=== PATIENT | female | born 1945 | race Caucasian/White ===

== ENCOUNTER → 2016-08-07 | Outpatient (CLI) | payer OTHER, MEDICARE ==
[~2016-08-07] MED LIST: ASPCH81X PO; ATOR-24 PO; BUSP-8 PO; CALC-440 PO; CINN1CAP2 PO; DSY/150 PO; ESCI1TAB10 PO; MISCCAP80 PO; MTR800 PO; OXYC-106 PO; PANT40TA PO; TEMA15CA4 PO
--- NOTE | 2016-08-07 18:30 | DIAGNOSTIC IMAGING REPORT ---
CHEST 2 VIEWS ROUTINE HISTORY: Preop. COMPARISON: None. FINDINGS: Small linear density within the periphery of the left midlung zone likely represents scarring. Otherwise, the lungs are clear. No pleural effusions. No pneumothorax. The heart is normal in size. Mild degenerative changes within the thoracic spine. Prior cholecystectomy. IMPRESSION: No acute process. Electronically signed by: Manuel Ye M.D. 08/07/2016 6:28 PM Dictated Date/Time: 08/07/2016 6:26 PM
[2016-08-07 18:39] LABS: BASO % 0.6 %; BASO ABS # 0.05 K/uL (0-0.2); COMPLETE YES; EOS % 2.2 %; HEMATOCRIT 43.1 % (37-47); IG% 0.2 %; LYMPH % 33.3 %; LYMPH ABS # 2.78 K/uL (1.2-3.4); MEAN CELL VOLUME 90.2 fL (80-100); MEAN CORPUSCULAR HEMOGLOBIN 29.9 pg (25-34); MEAN CORPUSCULAR HGB CONC 33.2 g/dl (32-36); MEAN PLATELET VOLUME 10.4 fL (7.4-10.4); MONO % 6.4 %; NEUT % 57.3 %; PLATELET COUNT 335 K/uL (130-400); RED BLOOD COUNT 4.78 M/uL (4.2-5.4); WHITE BLOOD COUNT 8.34 K/uL (4.8-10.8)
[2016-08-07 18:46] LABS: URINE APPEARANCE CLEAR (CLEAR); URINE BILIRUBIN NEG (NEG); URINE COLOR YELLOW; URINE NITRITE NEG (NEG); UROBILINOGEN NEG (NEG)
[2016-08-07 18:50] LABS: MANUAL MICROSCOPIC REQUIRED? NO; REVIEW REQ? NO
[2016-08-07 19:06] LABS: BLOOD UREA NITROGEN 17 mg/dl (7-18); BUN/CREATININE RATIO 23.8 (10-20); CARBON DIOXIDE 30 mmol/L (21-32); CHLORIDE 103 mmol/L (98-107); CREATININE 0.72 mg/dl (0.60-1.20); POTASSIUM 3.6 mmol/L (3.5-5.1); SODIUM 140 mmol/L (136-145)
== END | disposition home or self-care (01) ==
LOC: C.RAD 17:57
PROVIDERS: ATTEND Urology
DX: N20.0 Calculus of kidney (principal); R94.31 Abnormal electrocardiogram [ECG] [EKG]

== ENCOUNTER → 2016-08-11 | Day surgery (SDC) | payer OTHER, MEDICARE ==
[2016-08-09 15:23] VITALS: Ht 162.6 cm; Wt 84.5 kg
[~2016-08-11] VITALS: Ht 162.6 cm; Wt 84.5 kg
[~2016-08-11] MED LIST changes: +ATROPINE SULFATE 0.1 MG/ML 5ML SYR IV PRN; +CIPROFLOXACIN / D5W 400 MG IV SCH; +EpHEDrine SULFATE INJ 50 MG/ML AMP IV PRN; +FENTANYL CITRATE INJ 50 MCG/1 ML 2 ML VIAL IV PRN; +FENTANYL CITRATE INJ 50 MCG/1 ML 2 ML VIAL ONE; +LACTATED RINGER'S 1000ML 1,000 ML IV SCH; +LIDOCAINE HCL 2% 2 ML VIAL (20MG/ML) ONE; +ONDANSETRON INJ 2 MG/ML 2 ML VIAL IV PRN; +ONDANSETRON INJ 2 MG/ML 2 ML VIAL ONE; +OXYCODONE/ACETAMINOPHEN 5-325 TAB PO PRN; +PATIENT'S ALLERGY INFO NEEDS ENTERED SCH; +PROPOFOL IV EMULSION 10 MG/ML 20 ML VIAL IV ONE
--- NOTE | 2016-08-11 10:02 | DIAGNOSTIC IMAGING REPORT ---
KUB HISTORY: Pre-op STONES COMPARISON: Abdomen and pelvis CT 03/22/2016. FINDINGS: The bowel gas pattern is unremarkable. There are no dilated loops of small bowel to suggest an obstruction. There is a stable 13 mm stone within the right renal pelvis. No left renal or ureteral calculi identified. Punctate calcifications in the deep pelvis likely represent phleboliths. There is levoscoliosis and degenerative change within the lumbar spine. Prior cholecystectomy. No pneumoperitoneum or pneumatosis. IMPRESSION: No change in the 13 mm stone within the right renal pelvis. No ureteral calculi. Electronically signed by: Manuel Ye M.D. 08/11/2016 10:00 AM Dictated Date/Time: 08/11/2016 9:58 AM
--- NOTE | 2016-08-11 11:23 | History & Physical Bridge Note ---
H&P Re-Evaluation Bridge Note: I have examined the patient, reviewed the History & Physical and in the interval since the performance of the History & Physical I have noted the following changes of clinical significance: No changes noted
--- NOTE | 2016-08-11 12:18 | Discharge Instructions ---
Discharge Instructions Admission Reason for Admission: Stones Discharge Discharge Diagnosis / Problem: R renal stone Discharge Goals Goal(s): Improve disease control, Therapeutic intervention Activity Recommendations Activity Limitations: as noted below Lifting Limitations: gradually increase as tolerated Exercise/Sports Limitations: gradually increase as tolerated May Resume Sexual Activity: when tolerated Shower/Bathe: no limitations Driving or Machine Use: resume 1 day after discharge . Instructions / Follow-Up Instructions / Follow-Up Strain urine as instructed Follow-up as planned in office with KUB Xray before visit Discharge Diet Recommended Diet: Regular Diet (good fluid intake) Pending Studies Studies pending at discharge: no Medical Emergencies . Who to Call and When: Medical Emergencies: If at any time you feel your situation is an emergency, please call 911 immediately. . Non-Emergent Contact Non-Emergency issues call your: Urologist Call Non-Emergent contact if: you have a fever, temperature is above 101, your pain is not controlled, your pain is worsening, your pain is unusual for you, your pain is concerning you, you have any medication questions . . "Provider Documentation" section prepared by Iker Bacon. VTE Core Measure Inpt VTE Proph given/why not?: SCD's
--- NOTE | 2016-08-11 14:06 | [facility] Post Operative Brief Note ---
Immediate Operative Summary Operative Date Aug 11, 2016. Pre-Operative Diagnosis Right Renal Calculi Post-Operative Diagnosis Same Procedure(s) Performed Right Extracorporeal Shock Wave Lithotripsy Surgeon Dr. Winsome Bacon [facility] Former Surgeon(s) None Estimated Blood Loss 0 mL Findings Excellent stone fragmentation on fluoroscopy Specimens None Drains NA Anesthesia GALMA Complication(s) None Disposition Recovery Room / PACU
--- NOTE | 2016-08-11 14:51 | OPERATIVE REPORT ---
DATE OF OPERATION: 08/11/2016 PREOPERATIVE DIAGNOSIS: Right renal stone. POSTOPERATIVE DIAGNOSIS: Same. PROCEDURE: Right-sided extracorporeal shockwave lithotripsy of renal stone. SURGEON: Dr. Iker Bacon. LIVESTOCK TRADER: None. ANESTHESIA: General anesthesia with laryngeal mask. COMPLICATIONS: None. FINDINGS: Good stone fragmentation on fluoroscopy. DETAILS OF PROCEDURE: The patient was brought to the litho suite. He was correctly identified and the stone was visualized on his most recent x-rays. After the correct time out was performed the patient was positioned over the therapy head. An adequate level of anesthesia was administered. The extracorporeal shockwave lithotripsy treatment was then commenced. Please see the [facility] sheet for complete treatment summary. After completion of the procedure the patient was taken to the recovery room in stable condition. I attest to the content of the Intraoperative Record and any orders documented therein. Any exceptio ns are noted below.
--- NOTE | 2016-08-11 15:13 | Anesthesia Progress Nt - [facility] ---
Anesthesia Post Op Note Date & Time Aug 11, 2016 at 15:13 Vital Signs Pain Intensity: 5.0 Vital Signs Past 12 Hours Date Time Temp Pulse Resp B/P Pulse Ox O2 Delivery O2 Flow Rate FiO2 08/11/16 15:01 66 134/70 95 Room Air 08/11/16 14:42 60 19 97 08/11/16 14:42 60 19 08/11/16 14:41 61 22 96 08/11/16 14:41 61 22 08/11/16 14:41 36.6 96 Room Air 08/11/16 14:39 131/77 08/11/16 14:36 60 19 08/11/16 14:36 59 19 96 08/11/16 14:35 64 18 08/11/16 14:35 63 18 94 08/11/16 14:34 132/74 08/11/16 14:30 61 14 93 08/11/16 14:30 61 14 08/11/16 14:29 91/72 08/11/16 14:25 58 13 100 08/11/16 14:25 59 13 08/11/16 14:24 118/77 08/11/16 14:21 58 16 100 08/11/16 14:21 59 16 08/11/16 14:18 132/75 08/11/16 14:16 60 9 08/11/16 14:16 60 9 99 08/11/16 14:13 120/79 08/11/16 14:12 36.4 68 12 137/80 98 Mask 6 08/11/16 14:11 61 12 99 08/11/16 14:11 60 12 08/11/16 11:09 36.5 71 16 157/85 97 Room Air Notes Mental Status: alert / awake / arousable, participated in evaluation Pt Amnestic to Procedure: Yes Nausea / Vomiting: adequately controlled Pain: adequately controlled Airway Patency, RR, SpO2: stable & adequate BP & HR: stable & adequate Hydration State: stable & adequate Anesthetic Complications: no major complications apparent
[2016-08-11 15:23] VITALS: BP 125/79; PULSE 66; TEMP 36.4; O2SAT 95
== END | disposition home or self-care (01) ==
LOC: X.SURG 09:40
PROVIDERS: ATTEND Urology
DX: N20.0 Calculus of kidney (principal)

== ENCOUNTER → 2016-08-21 | Outpatient (CLI) | payer OTHER, MEDICARE ==
[~2016-08-21] MED LIST changes: -ATROPINE SULFATE 0.1 MG/ML 5ML SYR IV PRN; -CIPROFLOXACIN / D5W 400 MG IV SCH; -EpHEDrine SULFATE INJ 50 MG/ML AMP IV PRN; -FENTANYL CITRATE INJ 50 MCG/1 ML 2 ML VIAL IV PRN; -FENTANYL CITRATE INJ 50 MCG/1 ML 2 ML VIAL ONE; -LACTATED RINGER'S 1000ML 1,000 ML IV SCH; -LIDOCAINE HCL 2% 2 ML VIAL (20MG/ML) ONE; -ONDANSETRON INJ 2 MG/ML 2 ML VIAL IV PRN; -ONDANSETRON INJ 2 MG/ML 2 ML VIAL ONE; -OXYCODONE/ACETAMINOPHEN 5-325 TAB PO PRN; -PATIENT'S ALLERGY INFO NEEDS ENTERED SCH; -PROPOFOL IV EMULSION 10 MG/ML 20 ML VIAL IV ONE
== END | disposition home or self-care (01) ==
LOC: C.LABSPEC 11:04
PROVIDERS: ATTEND Urology
DX: N20.0 Calculus of kidney (principal)

== ENCOUNTER → 2016-08-21 | Outpatient (CLI) | payer OTHER, MEDICARE ==
--- NOTE | 2016-08-21 15:19 | DIAGNOSTIC IMAGING REPORT ---
KUB CLINICAL HISTORY: Nephrolithiasis. Follow-up lithotripsy. COMPARISON STUDY: KUB August 11, [address] of the abdomen and pelvis March 22, 2016. FINDINGS: The 1.3 cm right renal pelvis calculus shown on exam of August 11, 2016 is not visualized. Pelvic calcifications are unchanged and likely reflect phleboliths although make evaluation for ureteral calculi difficult. IMPRESSION: Nonvisualization of the right renal pelvis calculus shown on prior KUB. Pelvic calcifications likely reflect phleboliths although make evaluation for distal ureteral calculi/fragments difficult. Electronically signed by: Martin Del Rosario M.D. 08/21/2016 3:17 PM Dictated Date/Time: 08/21/2016 3:16 PM
== END | disposition home or self-care (01) ==
LOC: C.RAD 14:32
PROVIDERS: ATTEND Urology
DX: N20.0 Calculus of kidney (principal)

== ENCOUNTER → 2017-03-01 | Outpatient (CLI) | payer OTHER, MEDICARE ==
--- NOTE | 2017-03-01 14:42 | DIAGNOSTIC IMAGING REPORT ---
CT SCAN OF THE ABDOMEN AND PELVIS WITHOUT IV CONTRAST CLINICAL HISTORY: Nephrolithiasis. COMPARISON STUDY: Abdominal CT from [facility] dated 03/22/2016 and from [facility] dated 08/11/2016. KUB dated 08/21/2016. TECHNIQUE: CT scan of the abdomen and pelvis is performed from the lung bases to the proximal femora. Images are reviewed in the axial, sagittal, and coronal planes. IV contrast was not administered for this examination. Automated dose control exposure was utilized. A dose lowering technique was utilized adhering to the principles of ALARA. CT DOSE: 854.56 mGy.cm FINDINGS: Lung bases: The heart is normal in size and without pericardial effusion. There are coronary artery calcifications. There are numerous tiny calcified granulomas seen at both lung bases. The lung bases are otherwise clear. Liver: The unenhanced liver is normal in size, contour, and attenuation. There is no intrahepatic biliary ductal dilatation. Gallbladder: Surgically absent noting clips in the gallbladder fossa. Spleen: Normal in size and attenuation. Pancreas: Unremarkable. Adrenal glands: Unremarkable. Kidneys: The unenhanced kidneys demonstrate cortical atrophy and are without hydronephrosis. There is a 2 mm nonobstructing calculus in the lower pole of left kidney. No right renal calculi are identified. There are small parapelvic cysts seen on the left. There is no evidence of contour deforming renal mass lesion. Abdominal vasculature: The abdominal aorta is normal in course and caliber noting mild to moderate atherosclerotic calcification. Stomach and bowel: There is a tiny hiatal hernia. There is a gastric diverticulum seen posteriorly at the fundus on image #[id number]. The stomach and duodenum otherwise normal in configuration. No bowel obstruction is seen. There is mild to moderate sigmoid diverticulosis without CT evidence of acute diverticulitis. Additional right-sided diverticula are observed. Colonic fecal retention is observed. The appendix is well-visualized and normal. Peritoneum: There is no intraperitoneal free air or abdominal ascites. A small cystic structure in the right cardiophrenic region measures 1.6 cm. This is of doubtful significance. Lymphadenopathy: None. Pelvic viscera: The bladder is decompressed and not well assessed. The uterus is surgically absent. No adnexal lesion is seen. Skeletal structures: The skeletal structures are osteopenic. There is mild to moderate lumbosacral spondylosis. Postlaminectomy change is identified in the lower lumbar spine. Sclerotic change is seen involving the sacroiliac joints. No lytic or blastic lesions are seen. IMPRESSION: 1. There are no acute infectious or inflammatory findings in the abdomen or pelvis. 2. A 2 mm nonobstructing left renal calculus is identified. 3. Mild to moderate sigmoid diverticulosis without CT evidence of acute diverticulitis. 4. A gastric diverticulum is incidentally noted. 5. Additional findings as above. Electronically signed by: Jordy Lacey M.D. 03/01/2017 2:41 PM Dictated Date/Time: 03/01/2017 2:31 PM
== END | disposition home or self-care (01) ==
LOC: C.CTS 14:16
PROVIDERS: ATTEND Nurse Practitioner Adult Health
DX: N20.0 Calculus of kidney (principal); K57.30 Diverticulosis of large intestine without perforation or abscess without bleeding; K31.4 Gastric diverticulum